=== PATIENT | male | born 1950 | race Caucasian/White ===

== ENCOUNTER → 2021-10-10 13:04 | Outpatient (CLI) | payer MEDICARE, OTHER, SELFPAY ==
[2021-10-10 18:34] LABS: Add Manual Diff / Slide Review NO; Basophils Absolute Auto 0 /uL (0-100); Basophils Percent Auto 0.4 % (0-2); Eosinophils Absolute Auto 200 /uL (0-450); Eosinophils Percent Auto 3.9 % (2-4); Hematocrit 43.5 % (41-53); Hemoglobin 15.1 g/dL (13.5-17.5); Lymphocytes Absolute Auto 2000 /uL (1100-4500); Lymphocytes Percent Auto 34.2 % (25-40); Mean Corpuscular HGB Conc 34.7 % (30-36); Mean Corpuscular Hemoglobin 29.8 PG (26-34); Mean Corpuscular Volume 85.8 fL (80-100); Monocytes Absolute Auto 500 /uL (0-900); Monocytes Percent Auto 7.9 % (3-14); Neutrophils Absolute Auto 3100 /uL (1500-7000); Neutrophils Percent Auto 53.6 % (50-75); Platelet Count 143 X10^3/uL (150-400); Red Blood Cell Count 5.07 X10^6/uL (4.5-5.9); Red Cell Distribution Width 14.1 % (11.6-14.8); White Blood Cell Count 5.8 X10^3/uL (4.5-11.0)
[2021-10-10 18:46] LABS: BUN Creatinine Ratio 21.5 (6-22); Blood Urea Nitrogen 20 mg/dL (9-20); Calcium 9.4 mg/dL (8.4-10.2); Carbon Dioxide 25 mmol/L (22-32); Chloride 107 mmol/L (98-107); Cholesterol 191 mg/dL (140-199); Estimated Glomerular Filt Rate > 60 mL/min (>60); Glucose 124 mg/dL (80-110); HDL Cholesterol 35 mg/dL (40-60); HEMOLYSIS 22 (0-50); LDL Cholesterol Calculated 133 mg/dL (<100); Potassium 4.3 mmol/L (3.4-5.1); Sodium 139 mmol/L (137-145); Triglycerides 114 mg/dL (35-150)
[2021-10-10 19:25] LABS: Vitamin D 25 Hydroxy (D3) 32.9 ng/mL (30.0-100.0)
== END ==
PROVIDERS: PCP Family Medicine; Visit Provider Family Medicine
DX: I10 Essential (primary) hypertension (principal); E55.9 Vitamin D deficiency, unspecified; I48.91 Unspecified atrial fibrillation; Z13.0 Encounter for screening for diseases of the blood and blood-forming organs and certain disorders involving the immune mechanism; Z13.220 Encounter for screening for lipoid disorders; Z79.01 Long term (current) use of anticoagulants
CPT/HCPCS: 80048; 80061; 82306; 85025

== ENCOUNTER → 2022-03-25 15:50 | Outpatient (CLI) | payer MEDICARE, OTHER, SELFPAY ==
[2022-03-25 17:18] LABS: COVID19 -Nasal RAPID Negative (Negative)
== END ==
PROVIDERS: PCP Family Medicine; Visit Provider Surgery
DX: Z01.812 Encounter for preprocedural laboratory examination (principal); Z20.822 Contact with and (suspected) exposure to COVID-19
CPT/HCPCS: 87635; C9803

== ENCOUNTER 2022-03-26 06:55 | Day surgery (SDC) | payer MEDICARE, OTHER, SELFPAY ==
[2022-03-26] VITALS (17 sets, daily range): BP systolic 161–195; BP diastolic 87–117; PULSE 62–80; RESP 10–19; TEMP 36.1–37; O2SAT 62–98; BMI 38.5
[2022-03-26] MEDS: LACTATED RINGERS 1,000 ML 42 ML IV ×2 (07:52→08:49)
--- NOTE | 2022-03-26 07:55 | P.OP.PRE_ITS ---
Pre-operative Note COVID-19 COVID-19 status: Negative Interval Note History & Physical reviewed/Exam performed by Physician: Yes Changes to H&P: Yes H&P completed within 30 days and has changed as indicated here:: Mr. Moriah arnett to have an arrhythmia he was instructed by his educational aide to take Metoprolol when this happened. He took it three times, 2 days in a row then had begun taking one daily (he is unsure the dose, we will find out). His last time taking that was 2 days ago. We attempted to contact educational aide. We offered to reschedule the case for next week, but Mr. Vela had made many arrangements. So, this morning he came in and had a preop EKG. He is not having any chest pain, SOB or symptoms that he associates with the arrhythmia. Anesthesia team has evaluated and deemed it safe to proceed. Patient understands the risks of anesthesia and agrees to proceed.
[2022-03-26] MEDS: METOPROLOL IR 50 MG TABLET PO (08:00)
[2022-03-26] MEDS: CEFAZOLIN 3 GM IN 0.9 % NACL 3 GM/100 ML PLAST..BAG IV (08:14)
--- NOTE | 2022-03-26 08:48 | SUR.OPER ---
Supine on padded OR bed, head on pillow, arms secured on padded arm boards at <90 degrees abduction, legs uncrossed, safety belt at thigh, tape over blanket over lower legs.
[2022-03-26] MEDS: BUPIVACAINE 0.5% W/ EPI (PF) 30 ML VIAL INJ (08:55)
[2022-03-26] MEDS: HYDROMORPHONE 2 MG INJ IV ×5 (10:16→10:40)
--- NOTE | 2022-03-26 10:17 | P.OP_ITS ---
Procedure & Clinicians Procedure: Umbilical hernia repair Same procedure as scheduled: Yes Indications: See H& P patient had a symptomatic umbilical hernia I discussed risks benefits and alternatives to repair and he wished to proceed. Surgeon: Isabelle Wood Click Yes if Unassisted: Yes Anesthesia Type: General Operative Notes Procedure in detail: Patient was taken to the operating room and placed supine on the operating room table general endotracheal anesthesia was induced preoperative antibiotics were given and bilateral SCDs were in place prior to induction. Time-out was performed. Local anesthesia was infused above the umbilical defect and of 15 blade scalpel was used to make an incision in the skin along the fold lines. This incision was carried down through the subcutaneous tissue using electrocautery. A hernia sac was identified and dissected and manually. During this course I did enter the sac slightly. And used a 2-0 Vicryl pursestring suture to close that defect. The remainder of the case took place in the preperitoneal space. The defect was identified and the fascial defect was c leared away using a manual dissection and Metzenbaum scissors. The case was very hemostatic. A finger was used to clear out a preperitoneal space surrounding the edges of the fascial defect of at least 2 cm. The defect was quite large at least 5-6 cm in width, and length. IA was concerned that the largest circular mesh would be too small and therefore asked for a ventral mesh of the diameters 12 cm x 8 cm. This mesh fit nicely into the preperitoneal pocket below the defect. It was placed longitudinally with the longer length being in the superior/inferior position. 0 Prolene sutures were used in an interrupted fashion to secure the mesh into a flat position in this pocket. I used a 0 Prolene suture in a [id number] just to loosely close the fascia over top of the defect in order to secure the umbilical stalk to the middle of it. A 2-0 Vicryl was used to secure the umbilical stalk to the anterior fascia. The sub cutaneous space was closed with 3-0 Vicryl sutures in an interrupted fashion. Skin was closed with a running Monocryl and dressed with Steri-Strips. A gauze and Tegaderm was placed over the wound the EBL was minimal there were no complications and the patient when good condition to the postoperative care unit. Complications: none Post-operative Condition: stable Disposition: PACU
[2022-03-26] MEDS: METOPROLOL IR 25 MG TABLET 50 MG PO (10:19)
[2022-03-26] MEDS: OXYCODONE/ACETAMINOPHEN 5/325 TABLET 1 TAB PO ×2 (10:34→11:05)
[2022-03-26] MEDS: LABETALOL 20 MG/4 ML SYRINGE 5 MG IV (10:50)
== END 2022-03-26 12:05 | disposition home or self-care (01) ==
PROVIDERS: PCP Family Medicine; Referring Provider Surgery; Visit Provider Surgery
PROC: (CPT 49585; principal; 2022-03-26 07:45)
DX: K42.9 Umbilical hernia without obstruction or gangrene (principal); I48.91 Unspecified atrial fibrillation; Z79.01 Long term (current) use of anticoagulants
CPT/HCPCS: 49585; 93005; J0330; J0690; J1100; J1170; J2250; J2405; J2704; J3010

== ENCOUNTER → 2022-04-09 16:35 | Outpatient (CLI) | payer MEDICARE, OTHER, SELFPAY ==
[2022-04-09 18:07] LABS: Add Manual Diff / Slide Review NO; Basophils Absolute Auto 0 /uL (0-100); Basophils Percent Auto 0.3 % (0-2); Eosinophils Absolute Auto 200 /uL (0-450); Eosinophils Percent Auto 2.7 % (2-4); Hematocrit 45.1 % (41-53); Hemoglobin 15.3 g/dL (13.5-17.5); Lymphocytes Absolute Auto 2900 /uL (1100-4500); Lymphocytes Percent Auto 34.1 % (25-40); Mean Corpuscular HGB Conc 33.8 % (30-36); Mean Corpuscular Volume 85.9 fL (80-100); Monocytes Absolute Auto 600 /uL (0-900); Monocytes Percent Auto 6.6 % (3-14); Neutrophils Absolute Auto 4800 /uL (1500-7000); Neutrophils Percent Auto 56.3 % (50-75); Platelet Count 171 X10^3/uL (150-400); Red Blood Cell Count 5.26 X10^6/uL (4.5-5.9); Red Cell Distribution Width 14.2 % (11.6-14.8); White Blood Cell Count 8.4 X10^3/uL (4.5-11.0)
[2022-04-09 18:29] LABS: Alanine Aminotransferase 36 IU/L (<50); Albumin 3.9 g/dL (3.5-5.0); Alkaline Phosphatase 91 U/L (38-126); Aspartate Aminotransferase 36 IU/L (17-59); BUN Creatinine Ratio 16.9 (6-22); Bilirubin Total 0.8 mg/dL (0.2-1.3); Blood Urea Nitrogen 21 mg/dL (9-20); Calcium 9.2 mg/dL (8.4-10.2); Carbon Dioxide 24 mmol/L (22-32); Chloride 104 mmol/L (98-107); Estimated Glomerular Filt Rate > 60 mL/min (>60); Globulin 3.8 g/dL (1.7-4.1); Glucose 95 mg/dL (80-110); HEMOLYSIS < 15 (0-50); Sodium 139 mmol/L (137-145); Total Protein 7.7 g/dL (6.3-8.2)
[2022-04-09 18:35] LABS: NT-proBNP (BNP-Adult 18+) 1260 pg/mL (<125)
[2022-04-09 18:57] LABS: Thyroid Stimulating Hormone 1.55 uIU/mL (0.47-4.68)
== END ==
PROVIDERS: PCP Family Medicine; Referring Provider Nurse Practitioner; Visit Provider Nurse Practitioner
DX: I11.0 Hypertensive heart disease with heart failure (principal); I48.91 Unspecified atrial fibrillation
CPT/HCPCS: 36415; 80053; 83880; 84443; 85025

== ENCOUNTER → 2022-05-13 07:07 | Outpatient (CLI) | payer MEDICARE, OTHER, SELFPAY ==
[2022-05-13 19:13] LABS: COVID19 - ORCAS (NP or Nasal) Negative (Negative)
== END ==
PROVIDERS: PCP Family Medicine; Visit Provider Family Medicine
DX: Z01.812 Encounter for preprocedural laboratory examination (principal); Z20.822 Contact with and (suspected) exposure to COVID-19
CPT/HCPCS: C9803; U0003

== ENCOUNTER → 2022-05-29 14:22 | Outpatient (CLI) | payer MEDICARE, OTHER, SELFPAY | PROVIDERS: PCP Family Medicine; Visit Provider Physician Assistant | DX: R31.9 Hematuria, unspecified (principal) | CPT/HCPCS: 87086 ==

== ENCOUNTER → 2022-06-11 15:17 | Outpatient (CLI) | payer MEDICARE, OTHER, SELFPAY | PROVIDERS: PCP Family Medicine; Referring Provider Physician Assistant; Visit Provider Physician Assistant | DX: Z13.820 Encounter for screening for osteoporosis (principal); M85.851 Other specified disorders of bone density and structure, right thigh; M54.31 Sciatica, right side | CPT/HCPCS: 77080 ==

== ENCOUNTER → 2022-07-17 11:02 | Outpatient (CLI) | payer MEDICARE, OTHER, SELFPAY ==
[2022-07-17 20:09] LABS: Prostate Specific Antigen Scrn 1.18 ng/mL (0.1-4.0)
== END ==
PROVIDERS: PCP Physician Assistant; Visit Provider Physician Assistant
DX: Z12.5 Encounter for screening for malignant neoplasm of prostate (principal)
CPT/HCPCS: G0103

== ENCOUNTER → 2022-08-01 11:36 | Outpatient (CLI) | payer MEDICARE, OTHER, SELFPAY ==
[2022-08-01 12:12] LABS: BUN Creatinine Ratio 19.1 (6-22); Blood Urea Nitrogen 22 mg/dL (9-20); Calcium 9.3 mg/dL (8.4-10.2); Carbon Dioxide 29 mmol/L (22-32); Chloride 104 mmol/L (98-107); Estimated Glomerular Filt Rate > 60 mL/min (>60); Glucose 90 mg/dL (80-110); HEMOLYSIS < 15 (0-50); Potassium 3.9 mmol/L (3.4-5.1); Sodium 139 mmol/L (137-145)
== END ==
PROVIDERS: PCP Family Medicine; Referring Provider Urology; Visit Provider Urology
DX: R31.21 Asymptomatic microscopic hematuria (principal)
CPT/HCPCS: 36415; 80048

== ENCOUNTER → 2022-08-01 11:56 | Outpatient (CLI) | payer MEDICARE, OTHER, SELFPAY ==
--- NOTE | 2022-08-01 11:57 | DI.CT.S_ITS ---
PROCEDURE: CT IVP A/P W/WO INDICATIONS: Asymptomatic microscopic hematuria TECHNIQUE: Optional 5 mm thick noncontrast images acquired from the diaphragm to the symphysis pubis. After the administration of intravenous contrast, 5 mm thick images acquired from the diaphragm to the symphysis pubis after a 10-minute delay. 2 mm thick coronal and sagittal reformats were then performed of the kidneys and ureters. For radiation dose reduction, the following was used: automated exposure control, adjustment of mA and/or kV according to patient size. COMPARISON: None. FINDINGS: Image quality: Excellent. Lung bases: Lung bases are clear. Heart size is normal. Urinary system: Both kidneys are normal in size, without hydronephrosis or nephrolithiasis on pre-contrast images. No perinephric fat stranding. 2 low-density cystic lesions are present within the lower pole of the right kidney. 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 There is normal bilateral renal enhancement. Renal calyces appear normal in morphology when filled with contrast. Opacified portions of both ureters demonstrate normal caliber. Bladder wall thickness is normal. No calcified bladder stones. Other solid organs: Liver is normal in size and enhancement. Gallbladder is unremarkable . Biliary system is non dilated. Pancreas enhances normally. Spleen is normal in size and enhancement. No adrenal nodules. Peritoneum and bowel: Bowel loops demonstrate normal wall thickness and caliber. The appendix is not visualized; however there is no discrete right lower quadrant fluid or fat stranding to suggest acute appendicitis. No free fluid or air. Nodes and vessels: No retroperitoneal or mesenteric adenopathy by size criteria. Aorta and inferior vena cava are normal in size. There are scattered atheromatous calcifications throughout the aorta and iliac arteries bilaterally. Abdominal wall: A fat containing umbilical hernia is noted with fat stranding present. Pelvis: No pathologic free pelvic fluid. No inguinal adenopathy. There are bilateral fat containing inguinal hernias. Bones: No suspicious bony lesions. No vertebral body compression fractures. IMPRESSION: 1. No hydronephrosis, nephrolithiasis, hydroureter, or ureterolithiasis. 2. Incidentally noted duplicated bilateral renal collecting systems. 3. No suspicious enhancement of the kidneys, renal collecting systems, or bladder. 4. No acute intra-abdominal findings. The appendix is not visualized; however there are no ancillary findings to suggest acute appendicitis. Dictated by: Stephanie Lucas M.D. on 08/01/2022 at 14:47 Approved by: Stephanie Lucas M.D. on 08/01/2022 at 14:53
== END ==
PROVIDERS: PCP Family Medicine; Referring Provider Urology; Visit Provider Urology
DX: R31.21 Asymptomatic microscopic hematuria (principal); K42.9 Umbilical hernia without obstruction or gangrene; K40.20 Bilateral inguinal hernia, without obstruction or gangrene, not specified as recurrent; R39.9 Unspecified symptoms and signs involving the genitourinary system; Z77.22 Contact with and (suspected) exposure to environmental tobacco smoke (acute) (chronic); Z87.891 Personal history of nicotine dependence
CPT/HCPCS: 36415; 74178; 80048; 81002; 99214; Q9967

== ENCOUNTER 2022-12-31 09:22 | Day surgery (SDC) | payer MEDICARE, OTHER, SELFPAY ==
[2022-12-31 09:41] VITALS: BP 163/98; PULSE 77; RESP 16; TEMP 36.4; O2SAT 96; BMI 36.6
[2022-12-31] MEDS: LACTATED RINGERS 1,000 ML 200 ML IV (10:01)
--- NOTE | 2022-12-31 11:41 | PM.HP.1 ---
History of Present Illness History of Present Illness Date Patient Seen: 12/31/22 Time Patient Seen: 11:41 Chief complaint: Colonoscopy Narrative: 72-year-old man here for screening colonoscopy. Previously normal colonoscopy 10 years ago. No family history of intestinal malignancy. No abdominal concerns no abdominal pain nausea vomiting blood per rectum unintentional weight loss or anorexia. 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, left eye Hernia, umbilical History of tobacco use Hx of retinal detachment Lower urinary tract symptoms Routine general medical examination at health care facility Screening for colon cancer Screening for diabetes mellitus Screening for lipid disorders Screening PSA (prostate specific antigen) Secondhand smoke exposure Social History household members: spouse Smoking Status: Never smoker Meds Home Medications and Allergies Home Medications Medication Instructions Recorded Confirmed Type timolol maleate 0.5 % eye drops 1 drp EYE-LEFT DAILY #15 mL 06/18/22 12/31/22 Rx rivaroxaban 20 mg tablet (Xarelto) See Rx Instructions .Route 08/29/22 12/31/22 Rx .COMPLEX #90 tabs erythromycin 5 mg/gram (0.5 %) eye 1 applic EYE-LEFT QID #50 grams 12/10/22 Rx ointment furosemide 20 mg tablet 20 mg PO DAILY 12/31/22 12/31/22 History Allergies Allergy/AdvReac Type Severity Reaction Status Date / Time No Known Drug Allergies Allergy Verified 12/31/22 09:36 Exam Vital Signs (past 8 hours): - 12/31/22 09:41 Temperature 97.6 F Pulse Rate 77 Respiratory Rate 16 Blood Pressure 163/98 H Pulse Oximetry 96 Oxygen Delivery Method Room Air Oxygen Delivery Method Room Air Narrative Exam Narrative: General adult man alert oriented no acute distress Chest nonlabored respiration Extremities warm well perfused Assessment & Plan Assessment & Plan narrative: The patient requires colorectal screening and colonoscopy is recommended. Technical details were discussed. Risks, benefits, alternatives explained. Risks including but not limited to myocardial infarction, aspiration, bleeding, pain, missed lesion, incomplete examination, need for further radiographic studies, colonic perforation, and need for major abdominal surgery were discussed. All questions were answered to their satisfaction, and they are in agreement with this plan.
[2022-12-31 12:00] VITALS: BP 129/69; PULSE 71; RESP 10; TEMP 37.2; O2SAT 95
--- NOTE | 2022-12-31 12:03 | PM.OP.COLON ---
Operative Date/Time/Diagnoses Date of procedure: 12/31/22 Time of procedure: 12:03 Pre-op diagnosis: Colorectal screening Post-op diagnosis: same Procedure & Clinicians Study performed: Sigmoidoscopy Same procedure as scheduled: No Indications: Colorectal screening Surgeon: Armani Rod Procedure Notes Procedure in detail: The history and physical was performed/updated and the patient is ASA class is 2. The procedure was discussed in detail with the patient. Potential risks complications including infection, bleeding, missed diagnosis, perforation, need for surgery, and were explained. Their questions were answered and informed consent was obtained. Patient was brought to the procedure room and placed standard monitoring equipment. The patient's vital signs were monitored continuously throughout the entire procedure. Prior to starting time-out was performed. The patient was placed in the left lateral recumbent position. Procedural sedation was administered by anesthesia. Examination began with a thorough inspection of the perianal area there was no evidence of fissures, fistulae, external hemorrhoids or cutaneous malignancy. The colonoscopy scope was then placed into the anal canal and was advanced forward. Scope was advanced to the level of the sigmoid colon. The quality of the preparation was inadequate despite copious irrigation for safe and accurate performance of colonoscopy. Colonoscopy was aborted. To the level of the sigmoid colon the colon was absent of any large masses The patient tolerated the procedure well. They will be discharged once criteria are met. The withdrawl time was not applicable. Specimen(s): none sent Impression: Incomplete colonoscopy Post-procedure Plan for aftercare: Colonoscopy was not completed secondary to inadequate bowel preparation. Please contact the surgical clinic to reschedule with an alternative preparation. Disposition: same day surgery
[2022-12-31 12:06] VITALS: BP 134/78; PULSE 71; RESP 17; TEMP 37.1; O2SAT 97
[2022-12-31 12:11] VITALS: BP 170/98; PULSE 71; RESP 13; TEMP 36.4; O2SAT 96
[2022-12-31 12:19] VITALS: BP 167/97; PULSE 70; RESP 17; TEMP 36.7; O2SAT 97
== END 2022-12-31 12:30 | disposition home or self-care (01) ==
PROVIDERS: PCP Family Medicine; Referring Provider Surgery; Visit Provider Surgery
PROC: 0DJD8ZZ Inspection of Lower Intestinal Tract, Via Natural or Artificial Opening Endoscopic (ICD-10-PCS; CPT 45378; principal; 2022-12-31 10:45)
DX: Z12.11 Encounter for screening for malignant neoplasm of colon (principal); Z53.09 Procedure and treatment not carried out because of other contraindication
CPT/HCPCS: G0121; 45378

== ENCOUNTER 2023-01-23 09:33 | Day surgery (SDC) | payer MEDICARE, OTHER, SELFPAY ==
--- NOTE | 2023-01-23 | PATH_ITS ---
[facility] Accession Number: [id number] No. of containers..04 Tissue . 01 Material submitted: . PART A: cecum - CECAL POLYPS X 4 PART B: hepatic flexure - HEPATIC FLEXURE POLYPS X 3 PART C: colon - DESCENDING POLYP PART D: sigmoid colon - SIGMOID POLYPS X 3 . 01 Diagnosis: A. COLON, CECUM, POLYPS X4 BIOPSY: MULTIPLE FRAGMENTS OF POLYPS WITH TUBULAR ADENOMAS. - B. COLON, HEPATIC FLEXURE, POLYPS X3 BIOPSY: MULTIPLE FRAGMENTS OF POLYPS WITH TUBULAR ADENOMAS. - C. COLON, DESCENDING, POLYP BIOPSY: TUBULAR ADENOMA - D. COLON, SIGMOID, POLYPS X3 BIOPSY: FRAGMENTS OF POLYPS WITH TUBULAR ADENOMA/S AND ONE HYPERPLASTIC POLYP. [facility] 02/04/2023 1553 Local . 01 Electronically signed: . Black Ramirez MD, Pathologist NPI- [id number] . 01 Gross description: . Part A: CECAL POLYPS X 4: Received in formalin is multiple fragment(s) of beth, soft tissue measuring 2.0 x 1.0 x 0.4 cm submitted entirely in 1 cassette(s) Part B: HEPATIC FLEXURE POLYPS X 3: Received in formalin is multiple fragment(s) of beth, soft tissue measuring 2.0 x 1.0 x 0.1 cm in aggregate submitted entirely in 1 cassette(s) Part C: DESCENDING POLYP: Received in formalin is multiple fragment(s) of beth, soft tissue measuring 0.8 x 0.7 x 0.1 cm in aggregate submitted entirely in 1 cassette(s) Part D: SIGMOID POLYPS X 3: Received in formalin is multiple fragment(s) of beth, soft tissue measuring 2.5 x 1.0 x 0.3 cm in aggregate submitted entirely in 1 cassette(s) /AAYumiko 01/24/2023 0555 Local . 01 Pathologist provided ICD-10: Z12.11 . 01 CPT . 213239, 885888, [id number], [id number] Specimen Comment: A courtesy copy of this report has been sent to [phone] Performed at: 01 [facility] [address] [place] [address], [place], [place] [id number] MD Puma Beal MD Phone: [phone]
[2023-01-23] MEDS: LACTATED RINGERS 1,000 ML 42 ML IV (09:51)
[2023-01-23 09:54] VITALS: BMI 34.9
[2023-01-23 10:04] VITALS: BP 211/114; PULSE 93; RESP 17; TEMP 36.4; O2SAT 95
[2023-01-23 10:12] VITALS: BP 198/104
--- NOTE | 2023-01-23 11:39 | PM.PREOP ---
Pre-operative Note COVID-19 COVID-19 status: Not tested Interval Note History & Physical reviewed/Exam performed by Physician: Yes Changes to H&P: No ASA Class (for procedural sedation): III
[2023-01-23 13:47] VITALS: BP 138/74; PULSE 76; RESP 18; TEMP 36.9; O2SAT 95
--- NOTE | 2023-01-23 13:47 | P.OP.COLON_ITS ---
Operative Date/Time/Diagnoses Date of procedure: 01/23/23 Time of procedure: 13:47 Pre-op diagnosis: Colon cancer screening Post-op diagnosis: same Procedure & Clinicians Study performed: Colonoscopy Same procedure as scheduled: Yes Surgeon: Stephen Christie Procedure Notes Procedure in detail: Surgeon: Stephen Christie MD Anesthesia: Elijah Martines CRNA Procedure: The patient was brought to the endoscopy suite, placed in left lateral decubitus position. The patient was connected to monitoring devices. A time-out was performed. Sedation was administered. Once the patient was adequately sedated, a digital rectal exam was performed and was normal. The scope was then inserted and advanced to the cecum where the appendiceal orifice was identified and photographed. The scope was then slowly withdrawn over greater than 6 minutes. The mucosa was thoroughly inspected. There were 4 p olyps in the cecum all removed with a cold snare and sent together as cecal polyps. Their sizes ranged from 5 mm to 8 mm. There were 3 polyps at the hepatic flexure all proximally 5 mm and all removed with a cold snare and sent together. There was a 5 mm descending colon polyp removed with a cold snare. There were 3 5 mm sigmoid colon polyps removed with a cold snare and sent together. The scope was retroflexed in the rectum. No other abnormalities were seen. The scope was straightened and removed. The patient was awakened and brought to recovery. Scope withdrawal time: 27 minutes Sedation time: 37 minutes EBL: 5 mL Findings: Numerous polyps as outlined above Post-procedure Disposition: PACU
[2023-01-23 13:52] VITALS: BP 142/79; PULSE 77; RESP 16; O2SAT 96
[2023-01-23 13:57] VITALS: BP 144/84; PULSE 75; RESP 15; O2SAT 95
[2023-01-23 14:19] VITALS: BP 150/84; PULSE 78; RESP 16; O2SAT 96
== END 2023-01-23 14:41 | disposition home or self-care (01) ==
PROVIDERS: PCP Family Medicine; Referring Provider Surgery; Visit Provider Surgery
PROC: 0DJD8ZZ Inspection of Lower Intestinal Tract, Via Natural or Artificial Opening Endoscopic (ICD-10-PCS; CPT 45378; principal; 2023-01-23 11:00)
DX: Z12.11 Encounter for screening for malignant neoplasm of colon (principal); D12.0 Benign neoplasm of cecum; D12.3 Benign neoplasm of transverse colon; D12.4 Benign neoplasm of descending colon; D12.5 Benign neoplasm of sigmoid colon
CPT/HCPCS: 45380; J2704

== ENCOUNTER → 2023-03-13 10:57 | Outpatient (CLI) | payer MEDICARE, OTHER, SELFPAY ==
[2023-03-15 02:32] LABS: Hep C Virus Ab w/Reflex Quant NEGATIVE s/c (NEGATIVE)
== END ==
PROVIDERS: PCP Family Medicine; Visit Provider Family Medicine
DX: Z87.891 Personal history of nicotine dependence (principal)
CPT/HCPCS: 86803

== ENCOUNTER → 2023-12-03 10:28 | Outpatient (CLI) | payer MEDICARE, OTHER, SELFPAY ==
[2023-12-03 19:37] LABS: Add Manual Diff / Slide Review NO; Basophils Absolute Auto 0 /uL (0-100); Basophils Percent Auto 0.3 % (0-2); Eosinophils Absolute Auto 300 /uL (0-450); Eosinophils Percent Auto 4.3 % (2-4); Hematocrit 42.9 % (41-53); Hemoglobin 14.5 g/dL (13.5-17.5); Lymphocytes Absolute Auto 2200 /uL (1100-4500); Mean Corpuscular HGB Conc 33.9 % (30-36); Mean Corpuscular Hemoglobin 29.9 PG (26-34); Mean Corpuscular Volume 88.3 fL (80-100); Monocytes Absolute Auto 600 /uL (0-900); Monocytes Percent Auto 9.5 % (3-14); Neutrophils Absolute Auto 2900 /uL (1500-7000); Neutrophils Percent Auto 48.9 % (50-75); Platelet Count 134 X10^3/uL (150-400); Red Blood Cell Count 4.86 X10^6/uL (4.5-5.9); Red Cell Distribution Width 13.7 % (11.6-14.8); White Blood Cell Count 5.8 X10^3/uL (4.5-11.0)
[2023-12-03 19:40] LABS: Blood Urea Nitrogen 27 mg/dL (9-20); Calcium 9.6 mg/dL (8.4-10.2); Carbon Dioxide 25 mmol/L (22-32); Chloride 109 mmol/L (98-107); Estimated Glomerular Filt Rate > 60 mL/min (>60); Glucose 101 mg/dL (80-110); HEMOLYSIS < 15 (0-50); Potassium 4.2 mmol/L (3.4-5.1); Sodium 138 mmol/L (137-145)
== END ==
PROVIDERS: PCP Family Medicine; Visit Provider Family Medicine
DX: I10 Essential (primary) hypertension (principal); R31.21 Asymptomatic microscopic hematuria; I48.20 Chronic atrial fibrillation, unspecified; G47.30 Sleep apnea, unspecified
CPT/HCPCS: 80048; 85025

== ENCOUNTER → 2024-07-23 07:50 | Outpatient (CLI) | payer MEDICARE, OTHER, SELFPAY ==
[2024-07-23 17:47] LABS: Add Manual Diff / Slide Review NO; Basophils Absolute Auto 0 /uL (0-100); Basophils Percent Auto 0.4 % (0-2); Eosinophils Absolute Auto 200 /uL (0-450); Hematocrit 45.5 % (41-53); Hemoglobin 15.3 g/dL (13.5-17.5); Lymphocytes Absolute Auto 2000 /uL (1100-4500); Lymphocytes Percent Auto 32.6 % (25-40); Mean Corpuscular HGB Conc 33.7 % (30-36); Mean Corpuscular Hemoglobin 30.2 PG (26-34); Mean Corpuscular Volume 89.4 fL (80-100); Monocytes Absolute Auto 500 /uL (0-900); Monocytes Percent Auto 7.7 % (3-14); Neutrophils Absolute Auto 3400 /uL (1500-7000); Neutrophils Percent Auto 56.3 % (50-75); Platelet Count 148 X10^3/uL (150-400); Red Blood Cell Count 5.09 X10^6/uL (4.5-5.9); Red Cell Distribution Width 13.6 % (11.6-14.8); White Blood Cell Count 6.1 X10^3/uL (4.5-11.0)
[2024-07-23 17:57] LABS: BUN Creatinine Ratio 29.8 (6-22); Blood Urea Nitrogen 31 mg/dL (9-20); Calcium 9.8 mg/dL (8.4-10.2); Carbon Dioxide 25 mmol/L (22-32); Chloride 105 mmol/L (98-107); Cholesterol 186 mg/dL (140-199); Estimated Glomerular Filt Rate > 60 mL/min (>60); Glucose 93 mg/dL (80-110); HDL Cholesterol 48 mg/dL (40-60); HEMOLYSIS < 15 (0-50); LDL Cholesterol Calculated 128 mg/dL (<100); Potassium 4.3 mmol/L (3.4-5.1); Sodium 138 mmol/L (137-145); Triglycerides 52 mg/dL (35-150)
== END ==
PROVIDERS: PCP Family Medicine; Visit Provider Family Medicine
DX: I10 Essential (primary) hypertension (principal); Z12.5 Encounter for screening for malignant neoplasm of prostate; I48.20 Chronic atrial fibrillation, unspecified; R39.9 Unspecified symptoms and signs involving the genitourinary system; N40.0 Benign prostatic hyperplasia without lower urinary tract symptoms; G47.30 Sleep apnea, unspecified
CPT/HCPCS: 80048; 80061; 85025; G0103

== ENCOUNTER → 2024-10-28 10:52 | Outpatient (CLI) | payer MEDICARE, OTHER, SELFPAY ==
[2024-10-28 20:00] LABS: Cholesterol 189 mg/dL (140-199); Glucose 97 mg/dL (70-99); HDL Cholesterol 38 mg/dL (40-60); LDL Cholesterol Calculated 126 mg/dL (<100); Triglycerides 123 mg/dL (35-150)
[2024-10-28 20:29] LABS: Prostate Specific Antigen Scrn 1.12 ng/mL (0.1-4.0)
[2024-10-28 20:45] LABS: Hep C Virus Ab w/Reflex Quant NEGATIVE s/c (NEGATIVE)
== END ==
PROVIDERS: PCP Family Medicine; Visit Provider Family Medicine
DX: Z13.6 Encounter for screening for cardiovascular disorders (principal); Z12.5 Encounter for screening for malignant neoplasm of prostate; Z13.1 Encounter for screening for diabetes mellitus; Z11.59 Encounter for screening for other viral diseases
CPT/HCPCS: 80061; 82947; 86803; G0103